=== PATIENT | male | born 1985 | race American Indian/Alaskan Native ===

== ENCOUNTER 2017-02-20 21:07 | Emergency (ER) | payer SELFPAY | END 2017-02-20 21:33 | disposition left against medical advice (07) | LOC: ED 21:07 | DX: Z53.21 Procedure and treatment not carried out due to patient leaving prior to being seen by health care provider (principal) ==

== ENCOUNTER 2018-12-01 08:15 | Emergency (ER) | payer SELFPAY ==
[2018-12-01] MEDS ORDERED: IBUPROFEN PO ONE (09:32)
--- NOTE | 2018-12-01 09:51 | XRay Report ---
LEFT ANKLE, 3 views: History: Swelling, ankle pain. Bone mineralization is normal. There is moderate to severe diffuse soft tissue swelling. Moderate osteoarthritic changes are identified at the ankle joint. No acute fracture or bone lesion is identified. The hindfoot is intact. IMPRESSION: Soft tissue swelling. Osteoarthritis.
--- NOTE | 2018-12-01 10:21 | Emergency Department Report ---
HPI - General Chief Complaint: Extremity Injury, Lower Time Seen by Provider: 12/01/18 09:23 - HPI HPI: This is a 33-year-old male who presents to ED with left ankle pain stating that he was playing basketball on Saturday when he accidentally stepped the wrong on it and heard a pop. Patient states that he has been applying ice and resting the ankle for the past day. Patient states pain with applied pressure. ED Past Medical Hx - Medications Home Medications: Home Medications Medication Instructions Recorded Confirmed Last Taken Type Cyclobenzaprine [Flexeril] 10 mg PO QHS PRN #20 tablet 12/01/18 Unknown Rx Ibuprofen [Motrin 800 MG tab] 800 mg PO TID #30 tablet 12/01/18 Unknown Rx ED Review of Systems ROS: Stated complaint: LEFT ANKLE INJURY Other details as noted in HPI Comment: All other systems reviewed and negative Physical Exam - Physical Exam Vital Signs: Vital Signs 12/01/18 08:26 Temperature 97.8 F Pulse Rate 78 Respiratory 18 Rate Blood Pressure 117/92 [Right] Physical Exam: GENERAL: Alert and oriented x3, no apparent distress, Normal Gait, atraumatic. HEAD: Head is normocephalic and a-traumatic. EYES: Extra ocular muscles are intact. Pupils are equal, round, and reactive to light and accommodation. EXTREMITIES/MUSCULOSKELETAL: No cyanosis, clubbing, rash, lesions or edema. Full ROM bilaterally. Pedal Pulses 2+ bilaterally. LE strength bilaterally, st raight leg raise negative bilaterally. Moderate swelling to the left ankle. Tender to palpation on the lateral aspect of the ankle. Deformity seen NEUROLOGIC: The patient is cooperative with no focal neurologic deficits. SKIN: Warm and dry, No lesions, No ulceration or induration present. ED Course Vital Signs 12/01/18 08:26 Temperature 97.8 F Pulse Rate 78 Respiratory 18 Rate Blood Pressure 117/92 [Right] ED Medical Decision Making - Radiology Data Radiology results: report reviewed, image reviewed Fluoro Time In Minutes: LEFT ANKLE, 3 views: History: Swelling, ankle pain. Bone mineralization is normal. There is moderate to severe diffuse soft tissue swelling. Moderate osteoarthritic changes are identified at the ankle joint. No acute fracture or bone lesion is identified. The hindfoot is intact. IMPRESSION: Soft tissue swelling. Osteoarthritis. Transcribed By: TTR Dictated By: DOMINGO ZELAYA JR, MD Electronically Authenticated By: DOMINGO ZELAYA JR, MD Signed Date/Time: 12/01/18 0929 - Medical Decision Making 33-year-old male presents with a left ankle sprain/strain X-ray shows no acute fracture or dislocation. Vital signs are normal patient has not acute distress Discussed rice protocol. Discussed follow-up with your physician. Critical care attestation.: If time is entered above; I have spent that time in minutes in the direct care of this critically ill patient, excluding procedure time. ED Disposition Clinical Impression: Ankle sprain Disposition: DC-01 TO HOME OR SELFCARE Is pt being admited?: No Does the pt Need Aspirin: No Condition: Stable Instructions: Osteoarthritis (ED), Ankle Sprain (ED) Additional Instructions: Make sure to follow up with the primary care physician as discussed. Take all your medications as you've been prescribed. If you have any worsening symptoms or develop new symptoms please return to ED immediately. Prescriptions: Cyclobenzaprine [Flexeril] 10 mg PO QHS PRN #20 tablet PRN Reason: Muscle Spasm Ibuprofen [Motrin 800 MG tab] 800 mg PO TID #30 tablet Referrals: ALEX AMADOR MD [Primary Care Provider] - 3-5 Days Forms: Work/School Release Form(ED) Time of Disposition: 10:25
[2018-12-02 18:34] VITALS: BP 121/83
== END 2018-12-01 11:19 | disposition home or self-care (01) ==
LOC: ED 08:15
DX: S93.401A Sprain of unspecified ligament of right ankle, initial encounter (principal); X58.XXXA Exposure to other specified factors, initial encounter; Y93.89 Activity, other specified; Y92.89 Other specified places as the place of occurrence of the external cause; Y99.8 Other external cause status

== ENCOUNTER 2019-01-01 20:59 | Emergency (ER) | payer SELFPAY ==
[2019-01-01] MEDS ORDERED: DECADRON IM ONE (21:06)
[2019-01-01] MEDS ORDERED: BENADRYL PO ONE (21:06)
[2019-01-01] MEDS ORDERED: PEPCID PO ONE (21:06)
[2019-01-01 21:07] VITALS: BP 120/89
--- NOTE | 2019-01-01 21:07 | Emergency Department Report ---
Chief Complaint: Allergic Reaction Stated Complaint: ALLERGIC REACTION Time Seen by Provider: 01/01/19 21:02 - HPI History of Present Illness: abc intact allergic reaction to ? off and on for months vss to MSE - Exam Vital Signs: Vital Signs 01/01/19 21:03 Temperature 98.4 F Pulse Rate 90 Respiratory 18 Rate Blood Pressure 120/89 O2 Sat by Pulse 98 Oximetry MSE screening note: Focused history and physical exam performed. Due to findings the following was ordered: ED Disposition for MSE Condition: Stable
--- NOTE | 2019-01-01 21:28 | Emergency Department Report ---
ED Rash HPI - HPI Chief Complaint: Allergic Reaction Stated Complaint: ALLERGIC REACTION Time Seen by Provider: 01/01/19 21:02 Duration: 2 Days Location: Chest, Back, Abdomen, Upper Extremities, Lower Extremities Suspected Cause: Unknown Rash Symptoms: Yes Itching, No Facial Swelling, No Tongue/Oral Swelling, No Breathing Difficulties, No Choking Sensation, No Wheezing/Dyspnea, No Peeling, No Blistering, No Fever, No Lightheaded, No Malaise, No Myalgias Severity: mild Other History: 33 yo old urticarial rash. pt not sure what he is allergic to but the rash has been coming and going all spring. abc intact. home rx none. pmh none. psh none ED Review of Systems ROS: Stated complaint: ALLERGIC REACTION Other details as noted in HPI Comment: All other systems reviewed and negative ED Past Medical Hx - Past Medical History Previous Medical History?: No - Surgical History Past Surgical History?: No - Family History Family history: no significant - Medications Home Medications: Home Medications Medication Instructions Recorded Confirmed Last Taken Type Cetirizine HCl [ZyrTEC] 10 mg PO DAILY #30 capsule 01/01/19 Unknown Rx diphenhydrAMINE [Benadryl CAP] 25 mg PO Q8HR PRN #20 capsule 01/01/19 Unknown Rx predniSONE [Deltasone] 20 mg PO DAILY #5 tablet 01/01/19 Unknown Rx Rash Exam - Exam General: Vital signs noted. No distress. Alert and acting appropriately. HEENT: No Periorbital Edema, No Conjuctival Injection, No Chemosis, No Perioral Edema, No Tongue Edema, No Uvular Edema, No Compromised Airway, No Drooling Lungs: Yes Good Air Exchange, No Wheezes, No Ronchi, No Stridor, No Cough Heart: Yes Regular, No Murmur Skin: Yes Urticarial Rash, No Maculopapular Rash, No Morbilliform rash, No Bulla(e) Other: Positive: Abdomen Normal, Neurologic Normal, Musculoskeletal Normal ED Course Vital Signs 01/01/19 21:03 Temperature 98.4 F Pulse Rate 90 Respiratory 18 Rate Blood Pressure 120/89 O2 Sat by Pulse 98 Oximetry ED Medical Decision Making - Medical Decision Making simple allergic reaction comes and goes this pollen season no fever or systemic symptoms no eye or oral lesions otc meds not working at home noone in home has same vss abc intact taking po ambulatory medicated in ER dc home with dc plan of care Vital Signs 01/01/19 01/01/19 21:03 21:23 Temperature 98.4 F 98.4 F Pulse Rate 90 Respiratory 18 Rate Blood Pressure 120/89 O2 Sat by Pulse 98 Oximetry Critical care attestation.: If time is entered above; I have spent that time in minutes in the direct care of this critically ill patient, excluding procedure time. ED Disposition Clinical Impression: Allergic reaction Disposition: DC-01 TO HOME OR SELFCARE Is pt being admited?: No Does the pt Need Aspirin: No Condition: Stable Instructions: Urticaria (ED) Additional Instructions: meds as ordered today follow up with dumpman or rolled materials worker referral below Referrals: TAMIR MONTERO MD [Referring] - 3-5 Days Forms: Work/School Release Form(ED) Time of Disposition: 21:25
== END 2019-01-01 21:30 | disposition home or self-care (01) ==
LOC: ED 20:59
DX: T78.40XA Allergy, unspecified, initial encounter (principal); X58.XXXA Exposure to other specified factors, initial encounter
CPT/HCPCS: 96372; 99282; J1100